=== PATIENT | male | born 1970 | race Caucasian/White ===

== ENCOUNTER → 2020-09-22 | Outpatient (CLI) | payer OTHER ==
[2020-09-22 11:30] LABS: HEMATOCRIT 47.2 % (42.0-52.0); HEMOGLOBIN 15.7 g/dl (13.5-17.5); MEAN CORPUSCULAR HEMOGLOBIN 30.9 pg (27.0-33.0); MEAN CORPUSCULAR HGB CONC 33.3 g/dl (32.0-36.5); MEAN CORPUSCULAR VOLUME 92.9 fl (80.0-96.0); PLATELET COUNT, AUTOMATED 253 10^3/uL (150-450); RED BLOOD COUNT 5.08 10^6/uL (4.30-6.10); WHITE BLOOD COUNT 5.6 10^3/uL (4.0-10.0)
[2020-09-22 11:44] LABS: INR 0.93; PROTHROMBIN TIME 12.7 SECONDS (12.5-14.3)
[2020-09-22 12:01] LABS: ALBUMIN 4.2 GM/DL (3.2-5.2); ALT/SGPT 38 U/L (12-78); BILIRUBIN,TOTAL 0.8 MG/DL (0.2-1.0); BLOOD UREA NITROGEN 16 MG/DL (7-18); CALCIUM LEVEL 9.2 MG/DL (8.5-10.1); CARBON DIOXIDE LEVEL 29 MEQ/L (21-32); CHLORIDE LEVEL 108 MEQ/L (98-107); CREATININE FOR GFR 1.13 MG/DL (0.70-1.30); ERYTHROCYTE SEDIMENTATION RATE 3 mm/hr (0-20); GLOMERULAR FILTRATION RATE > 60.0 (>56); GLUCOSE, FASTING 99 MG/DL (70-100); POTASSIUM SERUM 5.4 MEQ/L (3.5-5.1); SODIUM LEVEL 144 MEQ/L (136-145); TOTAL PROTEIN 7.2 GM/DL (6.4-8.2)
== END ==
LOC: M PLALAB 08:30
PROVIDERS: ATTEND Orthopaedic Surgery
DX: Z01.818 Encounter for other preprocedural examination (principal); M16.12 Unilateral primary osteoarthritis, left hip; Z88.0 Allergy status to penicillin

== ENCOUNTER → 2020-09-28 | Outpatient (CLI) ==
[~2020-09-28] MED LIST: PERC5TAB12 PO; XARE10TA PO
== END ==
LOC: EDUNIT# 09:50 → M LABSMTC 09:55
PROVIDERS: ATTEND Anesthesiology
DX: Z01.812 Encounter for preprocedural laboratory examination (principal); Z20.828 Contact with and (suspected) exposure to other viral communicable diseases

== ENCOUNTER → 2020-09-28 | Outpatient (CLI) | payer OTHER ==
--- NOTE | 2020-09-28 10:53 | REP ---
INDICATION: PREOP TESTING EKG 1ST XR 2ND COMPARISON: None. TECHNIQUE: PA and lateral. FINDINGS: The mediastinum and cardiac silhouette are normal. The lung aponte are clear and without acute consolidation, effusion, or pneumothorax. The skeletal structures are intact and normal. IMPRESSION: No acute cardiopulmonary process. <Electronically signed by Sven Sanchez > 09/28/20 1044
--- NOTE | 2020-09-29 19:39 | ECGEPIP ---
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
== END ==
LOC: M EKG 10:15
PROVIDERS: ATTEND Orthopaedic Surgery
DX: Z01.812 Encounter for preprocedural laboratory examination (principal); Z20.828 Contact with and (suspected) exposure to other viral communicable diseases

== ENCOUNTER 2020-10-03 06:59 | Inpatient (IN) | payer OTHER ==
--- NOTE | 2020-09-28 09:48 | HPE ---
HISTORY AND PHYSICAL DATE OF ADMISSION: 10/03/2020 ATTENDING PHYSICIAN: Pérez Mendoza M.D. CHIEF COMPLAINT: Left hip pain and stiffness. HISTORY: The patient is a 50-year-old male with progressively worsening left hip pain and stiffness. He has failed to improve with conservative measures. He continues to have symptoms with weightbearing activities and activities of daily living. He has consented for an elective left total hip arthroplasty with Dr. Mendoza for his continued symptoms. Medical optimization pending with SIGIFREDO Baer. CURRENT MEDICATIONS: None. ALLERGIES: Penicillin. CHRONIC MEDICAL CONDITIONS: Fatty liver. PREVIOUS SURGERIES: None. SOCIAL HISTORY: Patient does not use tobacco and occasionally uses alcohol. He does live alone. REVIEW OF SYSTEMS: The patient denies fevers, chills, nausea, vomiting, or diarrhea. Denies chest pain, shortness of breath, lightheadedness, dizziness or headaches. Denies any abdominal pain. Denies any recent upper respiratory or urinary tract infection symptoms. Patient does continue to have left hip pain and stiffness with weightbearing activities and activities of daily living. PHYSICAL EXAMINATION: GENERAL: Well-nourished, well-developed male in no apparent distress. He is alert, oriented and cooperative. Mood and affect are appropriate. VITAL SIGNS: Height is 5'10", weight 215 pounds, temperature is 97.1, blood pressure 118/90, heart rate 70, respirations 12. NECK: Supple without lymphadenopathy. HEART: Regular rate and rhythm. LUNGS: Clear to auscultation bilaterally. Breathing is regular and unlabored. ABDOMEN: Soft and nontender. Bowel sounds are present. MUSCULOSKELETAL: Left hip exhibits no gross abnormalities. Skin is intact. He is walking with a limp favoring the left lower extremity. He has significantly decreased motions of the hip. He does appear to be in an externally rotated position. Strength in the left lower extremity is 5/5. Calf is soft and nontender without evidence of DVT. He is neurovascularly intact distally. LABORATORY DATA: Pro-Thrombin time is 12.7, INR is 0.93. Complete blood count: ESR 3, WBC is 5.6, RBC is 5.08, hemoglobin is 15.7, hematocrit is 47.2, platelets 253,000. Comprehensive metabolic profile: Fasting glucose 99, BUN 16, creatinine for GFR is 1.13. GFR greater than 60. Sodium is 144. Potassium is elevated at 5.4. Chloride elevated at 108. Carbon dioxide 29. Anion gap decreased at 7. Calcium 9.2. AST 21, ALT 38, alkaline phosphatase is 49. Total bilirubin is 0.8. Total protein 7.2. Albumin is 4.2. Albumin globulin ratio 1.4. IMPRESSION: Left hip osteoarthritis with x-rays notable for endstage degenerative changes. PLAN: Patient has consented for an elective left total hip arthroplasty with Dr. Mendoza for his continued symptoms. Patient will be NPO after midnight the night prior to surgery. He will use his Bactroban and Hibiclens as directed.
[~2020-10-03] VITALS: Ht 180.3 cm; Wt 98.6 kg
[~2020-10-03 06:59] MED LIST changes: +CLINDAMYCIN 900 MG in IV 1 EA IV ONE; +LR 1,000 ML IV ONE; -PERC5TAB12 PO; -XARE10TA PO
[2020-10-03] MEDS ORDERED: TRANEXAMIC ACID 100 MG/ML 10ML VIAL As Ordered ONE (09:16)
[2020-10-03] MEDS ORDERED: BUPIVACAINE LIPOSOME/PF 1.3% 20ML VIAL (13.3MG/ML)(EXPAREL)(C9290 PER1MG) As Ordered ONE (09:17)
[2020-10-03] MEDS ORDERED: BUPIVACAINE HCL 0.25% 10ML VIAL As Ordered ONE (09:17)
[2020-10-03] MEDS ORDERED: EPINEPHrine INJ 1 MG/ML 1ML AMP As Ordered ONE (09:17)
[2020-10-03] MEDS ORDERED: CLINDAMYCIN INJ 900MG/6ML VIAL As Ordered ONE (09:17)
--- NOTE | 2020-10-03 09:18 | IPN ---
PROGRESS NOTE DATE: 10/03/2020 SUBJECTIVE: The patient is seen and examined. He wishes to go ahead with a left total hip arthroplasty. He understands the nature and the risks of bleeding, infection, damage to nerves, vessels, persistent pain, wear, loosening, dislocation, leg length inequality, blood clots, medical problems, among others.
[2020-10-03] MEDS ORDERED: ePHEDrine SULFATE 25 MG/5 ML(5MG/ML) SYRINGE As Ordered ONE (09:55)
[2020-10-03] MEDS ORDERED: MIDAZOLAM INJ 2MG/2ML VIAL (J2250 PER 1MG) As Ordered ONE (09:55)
[2020-10-03] MEDS ORDERED: fentaNYL 100 MCG/2 ML INJECTION (J3010) As Ordered ONE (09:55)
[2020-10-03] MEDS ORDERED: propofoL 200 MG/20 ML VIAL As Ordered ONE ×2 (09:55→10:42)
[2020-10-03] MEDS ORDERED: LR 1,000 ML IV SCH (12:00)
[2020-10-03] MEDS ORDERED: oxyCODONE 5MG TAB PO PRN (12:00)
[2020-10-03] MEDS ORDERED: METOCLOPRAMIDE INJ 10MG/2ML VIAL (J2765 PER 1) IV PRN (12:00)
[2020-10-03] MEDS ORDERED: ACETAMINOPHEN TAB 650MG DOSE (2X325MG) PO PRN (12:00)
[2020-10-03] MEDS ORDERED: fentaNYL 100 MCG/2 ML INJECTION (J3010) IV PRN (12:00)
[2020-10-03] MEDS ORDERED: ONDANSETRON 4MG/2ML VIAL IV PRN ×2 (12:00)
[2020-10-03] MEDS ORDERED: MORPHINE 2 MG/ML 1ML VIAL (J2270) IV PRN ×2 (12:00)
[2020-10-03] MEDS ORDERED: MORPHINE 4 MG/ML 1ML VIAL/SYRINGE (J2270) IV PRN (12:00)
--- NOTE | 2020-10-03 12:01 | REP ---
INDICATION: S/P Total Hip Status post arthroplasty. COMPARISON: None. TECHNIQUE: AP and cross-table lateral views. FINDINGS: The patient is status post left hip replacement with normal positioning and appearance to the femoral and acetabular components. Overlying postsurgical changes appreciated. IMPRESSION: Satisfactory left hip replacement radiographs. <Electronically signed by Sven Sanchez > 10/03/20 1490
--- NOTE | 2020-10-03 12:08 | RO ---
OPERATIVE NOTE DATE OF OPERATION: 10/03/2020 PREOPERATIVE DIAGNOSIS: Left hip osteoarthritis. POSTOPERATIVE DIAGNOSIS: Left hip osteoarthritis. PROCEDURE: Left total hip arthroplasty using a Slope size 6 high-offset, 32 ceramic head and ceramic liner, 56 cup. SURGEON: Pérez Mendoza M.D. SALES SYSTEMS ENGINEER: Jay John PA-C ANESTHESIA: Spinal. EBL: 200. COMPLICATIONS: None. PROCEDURE: The patient was taken to the operating room and placed in the right lateral decubitus position on the Ava positioner. All areas were padded appropriately. The left hip was prepped and draped in the usual sterile fashion. A time out was performed. A longitudinal incision was made over the lateral aspect of the hip and sharp dissection was carried down through the subcutaneous tissue. I then controlled hemostasis with cautery, incised the fascia david. He did have pretty pronounced thick tensor muscle which made visualization a little more difficult but we were able to expose the abductors and divided the anterior 40% of the abductors off exposing the femoral neck. We then dislocated the hip without too much difficulty and began the canal-initiating reamer and the canal-finding reamer, the lateralizing reaming followed by the sequential reaming up to size 6 which had good bony purchase and good fit and fill. I then made the neck cut at about 3/4 of a fingerbreadth up from the lesser trochanter. The head was removed. It was severely arthritic. The acetabulum was exposed and it was somewhat oval-shaped due to a little bit of loss of superior bone. However, I was able to medialize it with the reamers starting with [address] my [address] medially down to what I felt was the floor. I then sequentially reamed up to size 55 which had good concentric reaming and good bleeding bone. I then impacted in a 56 acetabular component in appropriate amount of anteversion and horizontal tilt. I then removed large osteophytes from anteriorly and posteriorly around the acetabulum, placed trial cup in for 36 ball and then we directed our attention back to the femoral side where is sequentially broached up to size 6. I then trialed between standard and high off-set and +8.5 was the neck length I chose. He was about a centimeter short on this side so needed to regain some length and the soft tissue tension was appropriate. There was minimal shuck in full extension. There was excellent stability in extension external rotation and flexion internal rotation. Soft tissue tensioning was appropriate. I then removed the trial components, irrigated again copiously as I had multiple times, placed the apex hole eliminator followed by the ceramic liner, impacted this in place, made sure it was well seated. I then placed the actual stem which was size 6 high off-set, impacted this down until it was seated. I then dried the Marsh taper and impacted onto 36+8.5 ceramic head, made sure this was well seated. We reduced the hip, put the hip through range of motion, there was excellent stability, excellent soft tissue tension and range of motion. I then copiously irrigated as I had several times prior to this. I repaired the minimus with #1 Vicryl suture, the abductor with #1 Vicryl suture, placed some TXA deep in the wound and irrigated again. I closed the fascia david with #1 Vicryl suture and running Stratafix. The subcu was closed with 2-0 Vicryl and the skin with kelechi. A sterile dressing was applied. The patient was taken to the recovery room in stable condition. There were no known complications. The plan will be routine postop. The residential living assistant was instrumental in holding retractors and assisting in reducing and dislocating the hip and assisting in wound closure.
[2020-10-03] MEDS: LR 1,000 ML IV SCH (14:28)
[2020-10-03] MEDS: PERCOCET 5MG/325MG TAB PO PRN ×2 (14:36→18:47)
[2020-10-03 16:15] VITALS: BP 130/82
[2020-10-03] MEDS: CLINDAMYCIN 900 MG in IV 1 EA IV SCH (17:11)
[2020-10-03 22:00] VITALS: BP 117/75
[2020-10-04 02:00] VITALS: BP 117/74
[2020-10-04] MEDS: PERCOCET 5MG/325MG TAB PO PRN ×3 (02:15→12:25)
[2020-10-04] MEDS: CLINDAMYCIN 900 MG in IV 1 EA IV SCH (02:15)
[2020-10-04] MEDS: LR 1,000 ML IV SCH (05:13)
[2020-10-04 06:00] VITALS: BP 117/74
[2020-10-04 06:50] LABS: HEMOGLOBIN 13.1 g/dl (13.5-17.5); MEAN CORPUSCULAR HEMOGLOBIN 32.3 pg (27.0-33.0); MEAN CORPUSCULAR HGB CONC 35.4 g/dl (32.0-36.5); MEAN CORPUSCULAR VOLUME 91.4 fl (80.0-96.0); PLATELET COUNT, AUTOMATED 202 10^3/uL (150-450); RED BLOOD COUNT 4.05 10^6/uL (4.30-6.10); WHITE BLOOD COUNT 9.5 10^3/uL (4.0-10.0)
[2020-10-04] MEDS ORDERED: PERC5TAB12 PO (06:53)
[2020-10-04] MEDS ORDERED: XARE10TA PO (06:53)
[2020-10-04] MEDS ORDERED: MOM 30ML SUSPENSION UDC PO SCH (09:00)
[2020-10-04] MEDS ORDERED: MIRALAX *UNIT DOSE* 17GM PACKET PO SCH (09:00)
[2020-10-04 10:00] VITALS: BP 130/79
[2020-10-04 14:00] VITALS: BP 131/82
[2020-10-04] MEDS ORDERED: RIVAROXABAN 10 MG TAB (XARELTO) PO SCH (18:00)
--- NOTE | 2020-10-06 11:34 | DSES ---
DISCHARGE SUMMARY DATE OF ADMISSION: 10/03/2020 DATE OF DISCHARGE: 10/04/2020 ATTENDING PHYSICIAN: Pérez Mendoza M.D. ADMITTING DIAGNOSIS: Left hip osteoarthritis. OTHER DIAGNOSIS: Fatty liver. DISCHARGE DIAGNOSIS: Left hip osteoarthritis status post left total hip arthroplasty. HISTORY: Patient is a 50-year-old male with progressively worsening left hip pain and stiffness. He failed to improve with conservative measures. He continued to have symptoms with weightbearing activities and activities of daily living. He consented for an elective left total hip arthroplasty with Dr. Mendoza for his continued symptoms. OPERATION PERFORMED: Left total hip arthroplasty. HOSPITAL COURSE: The patient underwent a left total hip arthroplasty under spinal anesthesia which was uneventful. His hospital course was without complication and he was up with physical therapy per their protocol weightbearing as tolerated on the left lower extremity. Patient was discharged on oral pain medications and will resume his pre-operative medications and diet. Patient will use his thromboembolic deterrent stockings and take his anticoagulant post-operatively to prevent deep venous thrombosis. Patient will follow up in our office in 12-14 days for wound check and staple removal. He is encouraged to contact our office sooner if there is any increase in pain, redness, drainage, numbness or tingling in the extremity, fever greater than 101 degrees or any other concerns. Please see medical records for additional details. Co-Signer: Pérez Mendoza MD
== END 2020-10-04 15:15 | disposition home health service (06) | DRG 470 ==
LOC: M OR 06:59 → M MS5PR 14:05
PROVIDERS: ADMIT Orthopaedic Surgery; ATTEND Orthopaedic Surgery
PROC: 0SRB03Z Replacement of Left Hip Joint with Ceramic Synthetic Substitute, Open Approach (ICD-10-PCS; principal; 2020-10-03 09:50)
DX: M16.12 Unilateral primary osteoarthritis, left hip (principal); Z88.0 Allergy status to penicillin